=== PATIENT | female | born 1945 ===

== ENCOUNTER 2017-12-02 17:28 | Emergency (ER) | payer MEDICARE, OTHER ==
[~2017-12-02] VITALS: Ht 162.6 cm; Wt 72.4 kg
[2017-12-02] MEDS ORDERED: PAROXETINE10 MG PO (17:52)
[2017-12-02] MEDS ORDERED: BIOTIN1000 MCG PO (17:54)
[2017-12-02] MEDS ORDERED: PANTOPRAZOLE SO40 MG PO (17:54)
[2017-12-02] MEDS ORDERED: LEVOTHYROXIN137 MCG PO (17:54)
[2017-12-02] MEDS ORDERED: VITAMIN D35000 UNIT PO (17:55)
[2017-12-02] MEDS ORDERED: MULTIVITAMI1 PO (17:55)
[2017-12-02] MEDS ORDERED: SYMBICORT1 AE1 IN (17:56)
[2017-12-02 18:32] LABS: HEMATOCRIT 37.6 % (37.0-47.0); HEMOGLOBIN 12.5 g/dl (12.0-16.0); IMMATURE GRANULOCYTES 0.2 % (0.0-1.0); MEAN CELL VOLUME 100.3 fL CALC (80.0-100.0); MEAN CORPUSCULAR HGB 33.3 pG CALC (26.0-32.0); MEAN CORPUSCULAR HGB CONC 33.2 g/L CALC (32.0-36.0); NEUT# 6.02 thou/uL (2.00-7.15); RED BLOOD COUNT 3.75 mill/uL (4.20-5.60); RED CELL DISTRI WIDTH 12.6 % (11.5-15.5)
--- NOTE | 2017-12-02 18:47 | NUR ---
BREATHING TREATMENT GIVEN. BREATHING TECH. FOR GOOD DEPOSITION TO THE LUNGS OR IN CASE OF SOB.
[2017-12-02 18:48] LABS: ALBUMIN 4.1 g/dL (3.2-5.0); ALKALINE PHOSPHATASE 77 u/l (38-126); ANION GAP 15 (6-22 (CALC)); BILIRUBIN, TOTAL 0.3 mg/dL (0.0-1.4); BUN 30 mg/dL (8-23); BUN/CREATININE RATIO 28 (12-20 (CALC)); CALCIUM 9.4 mg/dL (8.4-10.2); CARBON DIOXIDE 29 mmol/l (22-30); CHLORIDE 100 mmol/l (95-108); CREATININE 1.1 mg/dL (0.5-1.0); GFR 49 ML/MIN (>=60 (CALC)); GFR FOR AFR.AMER. 59 ML/MIN (>=60 (CALC)); GLUCOSE 100 mg/dL (82-115); POTASSIUM 3.7 mmol/l (3.5-5.1); SGOT/AST 32 u/l (9-36); SGPT/ALT 25 u/l (11-66); SODIUM 140 mmol/l (137-146); TOTAL PROTEIN 7.2 g/dL (6.3-8.2)
[2017-12-02 19:00] LABS: MYOGLOBIN 35 ng/mL (0 - 62)
[2017-12-02 19:20] LABS: URINE BILIRUBIN - DIPSTICK NEGATIVE (NEGATIVE); URINE BLOOD DIPSTICK NEGATIVE (NEGATIVE); URINE COLOR YELLOW; URINE GLUCOSE - DIPSTICK NEGATIVE (NEGATIVE); URINE KETONE NEGATIVE (NEGATIVE); URINE LEUK ESTERASE NEGATIVE (NEGATIVE); URINE NITRITE - DIPSTICK NEGATIVE (Negative); URINE PH 6.5 (4.5-8.0); URINE PROTEIN - DIPSTICK NEGATIVE (NEG-TRACE); URINE UROBILINOGEN - DIPSTICK 0.2 E.U./dL (0.2)
[2017-12-02 19:23] LABS: URINE CLARITY CLEAR
[2017-12-02 19:26] VITALS: BP 124/60
== END 2017-12-02 19:33 | disposition left against medical advice (07) ==
LOC: ED 17:28 → ED-I 19:00 → ED 19:33
PROVIDERS: Emergency Medicine
DX: R07.9 Chest pain, unspecified (principal); Z91.19 Patient's noncompliance with other medical treatment and regimen; R06.02 Shortness of breath; J45.909 Unspecified asthma, uncomplicated